=== PATIENT | female | born 1955 | race Caucasian/White ===

== ENCOUNTER 2019-09-03 01:10 | Inpatient (IN) | payer OTHER, MEDICAID ==
[~2019-09-03] VITALS: Ht 162.6 cm; Wt 73.3 kg
[~2019-09-03 01:10] MED LIST: ADV250 IH; OLAN20TA2 PO; OSCD250 PO; TIOT185 IH
[2019-09-03] MEDS ORDERED: ZOLPIDEM TARTRATE 10 MG TABLET PO PRN (03:15)
[2019-09-03 04:05] VITALS: BP 109/67
[2019-09-03] MEDS ORDERED: IBUPROFEN 600 MG TABLET PO PRN (07:15)
[2019-09-03] MEDS ORDERED: CloNIDine HCL 0.1 MG TABLET PO PRN (07:15)
[2019-09-03] MEDS ORDERED: BENZOCAINE/MENTHOL LOZENGE MM PRN (07:15)
[2019-09-03] MEDS ORDERED: ALBUTEROL SULFATE HFA 90 MCG/PUFF 8 GM INHALER IH PRN (07:15)
[2019-09-03] MEDS ORDERED: OMEPRAZOLE 20 MG CAPSULE PO PRN (07:15)
[2019-09-03] MEDS ORDERED: ACETAMINOPHEN 325 MG TABLET PO PRN (07:15)
[2019-09-03] MEDS ORDERED: MAG HYDROX/AL HYDROX/SIMETH ES 30 ML SUSPENSION UDCUP PO PRN (07:15)
[2019-09-03] MEDS ORDERED: MAGNESIUM HYDROXIDE SUSPENSION 30 ML UDCUP PO PRN (07:15)
[2019-09-03] MEDS ORDERED: LOPERAMIDE HCL 2 MG CAPSULE PO PRN (07:15)
[2019-09-03] MEDS ORDERED: BACITRACIN 28.4 GM OINTMENT TP PRN (07:15)
[2019-09-03] MEDS ORDERED: DOCUSATE SODIUM 100 MG CAPSULE PO PRN (07:15)
[2019-09-03] MEDS ORDERED: PETROLATUM,WHITE 28 GM JELLY TP PRN (07:15)
[2019-09-03] MEDS ORDERED: ONDANSETRON HCL 4 MG TABLET PO PRN (07:15)
[2019-09-03] MEDS: TIOTROPIUM BROMIDE 18 MCG/INH HANDIHALER [5] IH SCH (13:03)
[2019-09-03] MEDS: OLANZapine 7.5 MG TABLET PO SCH (21:00)
[2019-09-04 04:39] VITALS: BP 101/68
[2019-09-04 08:17] VITALS: BP 105/62
[2019-09-04] MEDS: TIOTROPIUM BROMIDE 18 MCG/INH HANDIHALER [5] IH SCH (08:50)
[2019-09-04 09:18] LABS: AMPHET/METH SCREEN,URINE NEGATIVE (NEGATIVE); BARBITURATE SCREEN, URINE NEGATIVE (NEGATIVE); BENZODIAZEPINES SCREEN,URINE NEGATIVE (NEGATIVE); CANNABINOID SCREEN,URINE NEGATIVE (NEGATIVE); COCAINE SCREEN,URINE NEGATIVE (NEGATIVE); METHADONE SCREEN, URINE NEGATIVE (NEGATIVE); OPIATE SCREEN,URINE NEGATIVE (NEGATIVE)
[2019-09-04 09:19] LABS: PHENCYCLIDINE SCREEN,URINE NEGATIVE (NEGATIVE)
[2019-09-04] MEDS ORDERED: HALOPERIDOL LACTATE 5 MG/ML VIAL IM ONE (14:45)
[2019-09-04] MEDS ORDERED: LORazepam 2 MG/ML VIAL IM ONE (14:45)
[2019-09-04] MEDS ORDERED: DiphenhydrAMINE HCL 50 MG/ML VIAL IM ONE (14:45)
[2019-09-04 16:55] VITALS: BP 100/62
[2019-09-04] MEDS: OLANZapine 7.5 MG TABLET PO SCH (20:21)
[2019-09-05 04:49] VITALS: BP 110/68
[2019-09-05] MEDS: TIOTROPIUM BROMIDE 18 MCG/INH HANDIHALER [5] IH SCH (08:27)
[2019-09-05 16:11] VITALS: BP 128/76
[2019-09-05] MEDS: OLANZapine 7.5 MG TABLET PO SCH (20:44)
[2019-09-06 05:24] VITALS: BP 110/65
[2019-09-06 08:27] VITALS: BP 121/74
[2019-09-06] MEDS: TIOTROPIUM BROMIDE 18 MCG/INH HANDIHALER [5] IH SCH (08:29)
[2019-09-06 16:16] VITALS: BP 114/63
[2019-09-06] MEDS: OLANZapine 7.5 MG TABLET PO SCH (20:17)
[2019-09-07 05:25] VITALS: BP 117/65
[2019-09-07 07:51] LABS: EOSINOPHILS % (AUTO) 1.7 % (1.0-6.0); HEMATOCRIT 36.1 % (36-46); HEMOGLOBIN 12.1 g/dL (12.0-16.0); LYMPHOCYTES # (AUTO) 1.5 K/uL (1.0-4.8); LYMPHOCYTES % (AUTO) 29.8 % (22.0-44.0); MEAN CORPUSCULAR HEMOGLOBIN 30.4 pg (26.0-34.0); MEAN CORPUSCULAR HGB CONC 33.6 G/dL (31.0-37.0); MEAN CORPUSCULAR VOLUME 91 fL (80-100); MONOCYTES # (AUTO) 0.5 K/uL (0.1-1.0); MONOCYTES % (AUTO) 9.4 % (2.0-9.0); NEUTROPHILS # (AUTO) 2.9 K/uL (1.8-7.7); NEUTROPHILS % (AUTO) 58.1 % (40.0-70.0); PLATELET COUNT (AUTO) 222 K/uL (150-450); RED BLOOD CELL COUNT(AUTO) 3.98 MIL/uL (4.00-5.20)
[2019-09-07] MEDS: TIOTROPIUM BROMIDE 18 MCG/INH HANDIHALER [5] IH SCH (08:12)
[2019-09-07 08:18] VITALS: BP 102/66
[2019-09-07 08:19] LABS: ALANINE AMINOTRANSFERASE 17 U/L (12-78); ALBUMIN 3.2 g/dL (3.4-5.0); ALKALINE PHOSPHATASE 58 U/L (46-116); ANION GAP 8 mmol/L (8-16); ASPARTATE AMINOTRANSFERASE 17 U/L (15-37); BILIRUBIN,TOTAL 0.7 mg/dL (0.1-1.0); CARBON DIOXIDE 28 mmol/L (22-29); CHLORIDE 106 mmol/L (98-107); CHOL/HDL RATIO 3.3 (3.9-5.7); CHOLESTEROL 162 mg/dL (131-200); GLOMERULAR FILTR. RATE CALC > 60 mL/min (>60); GLUCOSE,RANDOM 94 mg/dL (70-110); HDL CHOLESTEROL 49 mg/dL (40-60); LDL CHOL (CALC.) 100 mg/dL (0-130); POTASSIUM 4.2 mmol/L (3.5-5.1); SODIUM SERUM 142 mmol/L (136-145); TOTAL PROTEIN, SERUM 6.2 g/dL (6.4-8.2); TRIGLYCERIDES 67 mg/dL (15-150); UREA NITROGEN, BLOOD 16 mg/dL (7-18)
[2019-09-07 16:09] VITALS: BP 109/67
[2019-09-07] MEDS: LORazepam 2 MG TABLET PO PRN (17:10)
[2019-09-07] MEDS: OLANZapine 7.5 MG TABLET PO SCH (20:42)
[2019-09-08 02:54] VITALS: BP 114/68
[2019-09-08] MEDS: TIOTROPIUM BROMIDE 18 MCG/INH HANDIHALER [5] IH SCH (08:52)
[2019-09-08 16:04] VITALS: BP 122/67
[2019-09-08] MEDS: OLANZapine 7.5 MG TABLET PO SCH (20:43)
[2019-09-09 04:59] VITALS: BP 118/66
[2019-09-09 08:16] VITALS: BP 121/55
[2019-09-09] MEDS: TIOTROPIUM BROMIDE 18 MCG/INH HANDIHALER [5] IH SCH (08:27)
[2019-09-09 16:10] VITALS: BP 113/76
[2019-09-09] MEDS: OLANZapine 7.5 MG TABLET PO SCH (20:16)
[2019-09-10 00:05] VITALS: BP 110/68
[2019-09-10] MEDS: TIOTROPIUM BROMIDE 18 MCG/INH HANDIHALER [5] IH SCH (08:51)
[2019-09-10] MEDS: LORazepam 2 MG TABLET PO PRN (08:51)
[2019-09-10 16:29] VITALS: BP 103/62
[2019-09-10] MEDS: OLANZapine 7.5 MG TABLET PO SCH (20:16)
[2019-09-11 00:29] VITALS: BP 115/64
[2019-09-11 08:15] VITALS: BP 120/64
[2019-09-11] MEDS: LORazepam 2 MG TABLET PO PRN ×2 (08:33→16:13)
[2019-09-11] MEDS: TIOTROPIUM BROMIDE 18 MCG/INH HANDIHALER [5] IH SCH (08:37)
[2019-09-11 16:06] VITALS: BP 119/74
[2019-09-11] MEDS: HALOPERIDOL 5 MG TABLET PO PRN (16:13)
[2019-09-11] MEDS: OLANZapine 7.5 MG TABLET PO SCH (20:15)
[2019-09-12 05:48] VITALS: BP 111/78
[2019-09-12] MEDS: LORazepam 2 MG TABLET PO PRN (08:02)
[2019-09-12 08:08] VITALS: BP 121/84
[2019-09-12] MEDS: TIOTROPIUM BROMIDE 18 MCG/INH HANDIHALER [5] IH SCH (08:13)
[2019-09-12] MEDS: HALOPERIDOL 5 MG TABLET PO PRN (16:11)
[2019-09-12 16:23] VITALS: BP 114/66
[2019-09-12] MEDS: OLANZapine 7.5 MG TABLET PO SCH (20:02)
[2019-09-13 06:21] VITALS: BP 116/71
[2019-09-13 08:16] VITALS: BP 112/67
[2019-09-13] MEDS: TIOTROPIUM BROMIDE 18 MCG/INH HANDIHALER [5] IH SCH (08:32)
[2019-09-13 16:11] VITALS: BP 113/70
[2019-09-13] MEDS: OLANZapine 7.5 MG TABLET PO SCH ×2 (20:18→20:27)
[2019-09-14 05:35] VITALS: BP 117/74
[2019-09-14 08:27] VITALS: BP 100/57
[2019-09-14] MEDS: TIOTROPIUM BROMIDE 18 MCG/INH HANDIHALER [5] IH SCH (08:49)
[2019-09-14 16:26] VITALS: BP 110/63
[2019-09-14] MEDS: OLANZapine 7.5 MG TABLET PO SCH (20:48)
[2019-09-15 02:14] VITALS: BP 120/65
[2019-09-15 08:06] VITALS: BP 101/59
[2019-09-15] MEDS: TIOTROPIUM BROMIDE 18 MCG/INH HANDIHALER [5] IH SCH (09:00)
[2019-09-15 16:12] VITALS: BP 127/84
[2019-09-15] MEDS: OLANZapine 7.5 MG TABLET PO SCH (20:31)
[2019-09-16 01:16] VITALS: BP 123/79
[2019-09-16 08:08] VITALS: BP 109/66
[2019-09-16] MEDS: TIOTROPIUM BROMIDE 18 MCG/INH HANDIHALER [5] IH SCH ×2 (08:29→09:00)
[2019-09-16 16:07] VITALS: BP 116/73
[2019-09-16] MEDS: OLANZapine 7.5 MG TABLET PO SCH (20:10)
[2019-09-17 04:02] VITALS: BP 110/66
[2019-09-17 08:20] VITALS: BP 111/63
[2019-09-17] MEDS: TIOTROPIUM BROMIDE 18 MCG/INH HANDIHALER [5] IH SCH (08:30)
[2019-09-17 16:42] VITALS: BP 123/68
[2019-09-17] MEDS: OLANZapine 7.5 MG TABLET PO SCH (20:07)
[2019-09-18 04:39] VITALS: BP 117/65
[2019-09-18] MEDS: TIOTROPIUM BROMIDE 18 MCG/INH HANDIHALER [5] IH SCH (08:07)
[2019-09-18 08:26] VITALS: BP 126/69
[2019-09-18] MEDS: HALOPERIDOL 5 MG TABLET PO PRN (16:16)
[2019-09-18 16:18] VITALS: BP 115/60
[2019-09-18] MEDS: OLANZapine 7.5 MG TABLET PO SCH (20:14)
[2019-09-19 04:20] VITALS: BP 110/68
[2019-09-19] MEDS: TIOTROPIUM BROMIDE 18 MCG/INH HANDIHALER [5] IH SCH (08:25)
[2019-09-19 09:32] VITALS: BP 101/56
[2019-09-19] MEDS: OLANZapine 7.5 MG TABLET PO SCH (20:17)
[2019-09-19 20:54] VITALS: BP 111/60
[2019-09-20] MEDS: LORazepam 2 MG TABLET PO PRN (08:57)
[2019-09-20] MEDS: TIOTROPIUM BROMIDE 18 MCG/INH HANDIHALER [5] IH SCH (08:57)
[2019-09-20 10:20] VITALS: BP 114/62
[2019-09-20 16:21] VITALS: BP 104/65
[2019-09-20] MEDS: OLANZapine 7.5 MG TABLET PO SCH (21:00)
[2019-09-21 05:16] VITALS: BP 107/61
[2019-09-21 08:23] VITALS: BP 100/55
[2019-09-21] MEDS: TIOTROPIUM BROMIDE 18 MCG/INH HANDIHALER [5] IH SCH (09:00)
[2019-09-21 16:35] VITALS: BP 117/63
[2019-09-21] MEDS: OLANZapine 7.5 MG TABLET PO SCH (21:08)
[2019-09-22 01:59] VITALS: BP 110/68
[2019-09-22 08:13] VITALS: BP 100/60
[2019-09-22] MEDS: TIOTROPIUM BROMIDE 18 MCG/INH HANDIHALER [5] IH SCH (09:00)
[2019-09-22] MEDS ORDERED: TUBERCULIN, PURIFIED PROTEIN DERIVATIVE 5 TU/0.1 ML SYRINGE ID ONE (15:45)
[2019-09-22 17:06] VITALS: BP 117/62
[2019-09-22] MEDS: OLANZapine 7.5 MG TABLET PO SCH (20:58)
[2019-09-23 03:54] VITALS: BP 114/74
[2019-09-23] MEDS: TIOTROPIUM BROMIDE 18 MCG/INH HANDIHALER [5] IH SCH (08:03)
[2019-09-23 08:14] VITALS: BP 110/74
[2019-09-23 16:05] VITALS: BP 100/62
[2019-09-23] MEDS: OLANZapine 7.5 MG TABLET PO SCH (20:18)
[2019-09-24 04:36] VITALS: BP 96/71
[2019-09-24] MEDS: TIOTROPIUM BROMIDE 18 MCG/INH HANDIHALER [5] IH SCH (08:15)
[2019-09-24 08:21] VITALS: BP 101/59
[2019-09-24 17:20] VITALS: BP 113/67
[2019-09-24] MEDS: OLANZapine 7.5 MG TABLET PO SCH (20:17)
[2019-09-25 08:22] VITALS: BP 100/59
[2019-09-25] MEDS: TIOTROPIUM BROMIDE 18 MCG/INH HANDIHALER [5] IH SCH (09:00)
[2019-09-25 16:16] VITALS: BP 122/72
[2019-09-25] MEDS: OLANZapine 7.5 MG TABLET PO SCH (21:03)
[2019-09-26 08:16] VITALS: BP 102/62
[2019-09-26] MEDS: TIOTROPIUM BROMIDE 18 MCG/INH HANDIHALER [5] IH SCH (08:35)
[2019-09-26 16:48] VITALS: BP 102/69
[2019-09-26] MEDS: OLANZapine 7.5 MG TABLET PO SCH (21:11)
[2019-09-27 06:41] VITALS: BP 108/65
[2019-09-27] MEDS: TIOTROPIUM BROMIDE 18 MCG/INH HANDIHALER [5] IH SCH (08:05)
[2019-09-27 08:25] VITALS: BP 116/71
[2019-09-27 16:14] VITALS: BP 114/64
[2019-09-27] MEDS: OLANZapine 7.5 MG TABLET PO SCH (20:28)
[2019-09-28 01:53] VITALS: BP 117/72
[2019-09-28 08:16] VITALS: BP 108/66
[2019-09-28] MEDS: TIOTROPIUM BROMIDE 18 MCG/INH HANDIHALER [5] IH SCH (08:25)
[2019-09-28 16:25] VITALS: BP 108/70
[2019-09-28] MEDS: OLANZapine 7.5 MG TABLET PO SCH (21:06)
[2019-09-29 01:55] VITALS: BP 110/74
[2019-09-29 08:04] VITALS: BP 110/64
[2019-09-29] MEDS: TIOTROPIUM BROMIDE 18 MCG/INH HANDIHALER [5] IH SCH (08:56)
[2019-09-29 16:22] VITALS: BP 132/70
[2019-09-29] MEDS: OLANZapine 7.5 MG TABLET PO SCH (20:20)
[2019-09-30 01:29] VITALS: BP 126/74
[2019-09-30] MEDS: TIOTROPIUM BROMIDE 18 MCG/INH HANDIHALER [5] IH SCH (08:12)
[2019-09-30 08:17] VITALS: BP 103/60
[2019-09-30] MEDS: OLANZapine 7.5 MG TABLET PO SCH (20:23)
[2019-09-30 20:43] VITALS: BP 109/61
[2019-10-01 03:30] VITALS: BP 116/68
[2019-10-01] MEDS: TIOTROPIUM BROMIDE 18 MCG/INH HANDIHALER [5] IH SCH (08:38)
[2019-10-01 08:40] VITALS: BP 107/62
[2019-10-01 17:03] VITALS: BP 124/84
[2019-10-01] MEDS: OLANZapine 7.5 MG TABLET PO SCH (20:13)
[2019-10-02 06:15] VITALS: BP 136/75
[2019-10-02] MEDS: TIOTROPIUM BROMIDE 18 MCG/INH HANDIHALER [5] IH SCH (08:40)
[2019-10-02 08:46] VITALS: BP 102/69
[2019-10-02 16:00] VITALS: BP 115/67
[2019-10-02] MEDS: OLANZapine 7.5 MG TABLET PO SCH (20:06)
[2019-10-03 04:31] VITALS: BP 101/68
[2019-10-03] MEDS: TIOTROPIUM BROMIDE 18 MCG/INH HANDIHALER [5] IH SCH (08:32)
[2019-10-03 08:54] VITALS: BP 127/78
[2019-10-03] MEDS ORDERED: DiphenhydrAMINE HCL 50 MG/ML VIAL IM ONE (12:45)
[2019-10-03] MEDS ORDERED: HALOPERIDOL LACTATE 5 MG/ML VIAL IM ONE (12:45)
[2019-10-03] MEDS ORDERED: LORazepam 2 MG/ML VIAL IM ONE (12:45)
[2019-10-03 16:40] VITALS: BP 100/64
[2019-10-03] MEDS: OLANZapine 7.5 MG TABLET PO SCH (20:53)
[2019-10-04 01:34] VITALS: BP 105/62
[2019-10-04] MEDS ORDERED: PNEUMOCOCCAL VACCINE POLYVALENT 0.5 ML VIAL [PPSV23] IM ONE (03:00)
[2019-10-04] MEDS: TIOTROPIUM BROMIDE 18 MCG/INH HANDIHALER [5] IH SCH (08:24)
[2019-10-04 08:32] VITALS: BP 100/67
[2019-10-04 16:11] VITALS: BP 105/63
[2019-10-04] MEDS: OLANZapine 7.5 MG TABLET PO SCH (20:07)
[2019-10-05 04:21] VITALS: BP 110/64
[2019-10-05 09:39] VITALS: BP 100/66
[2019-10-05 16:09] VITALS: BP 107/67
[2019-10-05] MEDS: OLANZapine 7.5 MG TABLET PO SCH (20:39)
[2019-10-06 09:04] VITALS: BP 108/60
[2019-10-06 16:23] VITALS: BP 125/76
[2019-10-06] MEDS: OLANZapine 7.5 MG TABLET PO SCH (20:06)
[2019-10-07 00:11] VITALS: BP 105/64
[2019-10-07 08:27] VITALS: BP 105/66
[2019-10-07] MEDS: HALOPERIDOL 5 MG TABLET PO PRN (10:12)
[2019-10-07] MEDS: LORazepam 2 MG TABLET PO PRN (10:12)
[2019-10-07 16:00] VITALS: BP 106/74
[2019-10-07] MEDS: OLANZapine 7.5 MG TABLET PO SCH (20:17)
[2019-10-08 09:43] VITALS: BP 97/62
[2019-10-08 16:07] VITALS: BP 107/78
[2019-10-08] MEDS: OLANZapine 7.5 MG TABLET PO SCH (20:17)
[2019-10-09 00:30] VITALS: BP 126/73
[2019-10-09 08:08] VITALS: BP 102/64
[2019-10-09 16:24] VITALS: BP 108/66
[2019-10-09] MEDS: OLANZapine 7.5 MG TABLET PO SCH (20:17)
[2019-10-10 06:48] VITALS: BP 114/68
[2019-10-10 08:18] VITALS: BP 128/70
[2019-10-10 17:28] VITALS: BP 100/63
[2019-10-10] MEDS: OLANZapine 7.5 MG TABLET PO SCH (20:51)
[2019-10-11 02:00] VITALS: BP 118/67
[2019-10-11 09:18] VITALS: BP 95/55
[2019-10-11 17:36] VITALS: BP 118/64
[2019-10-11] MEDS: OLANZapine 7.5 MG TABLET PO SCH (20:13)
[2019-10-12 00:03] VITALS: BP 120/70
[2019-10-12 08:47] VITALS: BP 111/73
[2019-10-12 16:06] VITALS: BP 124/78
[2019-10-12] MEDS: OLANZapine 7.5 MG TABLET PO SCH (21:45)
[2019-10-13 06:49] VITALS: BP 118/81
[2019-10-13 08:10] VITALS: BP 113/63
[2019-10-13 16:00] VITALS: BP 123/70
[2019-10-13] MEDS: OLANZapine 7.5 MG TABLET PO SCH (20:00)
[2019-10-14 01:58] VITALS: BP 122/75
[2019-10-14 08:14] VITALS: BP 93/63
[2019-10-14] MEDS: OLANZapine 7.5 MG TABLET PO SCH (20:04)
[2019-10-15 02:22] VITALS: BP 115/70
[2019-10-15 08:06] VITALS: BP 106/67
[2019-10-15 16:06] VITALS: BP 131/74
[2019-10-15] MEDS: OLANZapine 7.5 MG TABLET PO SCH (20:52)
[2019-10-16 00:40] VITALS: BP 119/76
[2019-10-16 08:31] VITALS: BP 105/61
[2019-10-16 16:59] VITALS: BP 113/60
[2019-10-16] MEDS: OLANZapine 7.5 MG TABLET PO SCH (20:17)
[2019-10-17 06:51] VITALS: BP 125/78
[2019-10-17 08:27] VITALS: BP 101/64
[2019-10-17 16:09] VITALS: BP 115/61
[2019-10-17] MEDS: OLANZapine 7.5 MG TABLET PO SCH (20:10)
[2019-10-18 00:15] VITALS: BP 94/58
[2019-10-18 10:18] VITALS: BP 74/116
[2019-10-18 16:08] VITALS: BP 114/68
[2019-10-18] MEDS: OLANZapine 7.5 MG TABLET PO SCH (20:18)
[2019-10-19 04:49] VITALS: BP 122/65
[2019-10-19 08:51] VITALS: BP 103/62
[2019-10-19 16:49] VITALS: BP 110/72
[2019-10-19] MEDS: OLANZapine 7.5 MG TABLET PO SCH (20:05)
[2019-10-20 08:36] VITALS: BP 110/65
[2019-10-20 16:11] VITALS: BP 100/68
[2019-10-20] MEDS: OLANZapine 7.5 MG TABLET PO SCH (20:33)
[2019-10-21 04:18] VITALS: BP 105/71
[2019-10-21 09:11] VITALS: BP 94/54
[2019-10-21 16:19] VITALS: BP 101/68
[2019-10-21] MEDS: OLANZapine 7.5 MG TABLET PO SCH (20:41)
[2019-10-22 00:25] VITALS: BP 100/66
[2019-10-22 08:29] VITALS: BP 100/62
[2019-10-22 16:09] VITALS: BP 125/79
[2019-10-22] MEDS: OLANZapine 7.5 MG TABLET PO SCH (20:05)
[2019-10-23 06:21] VITALS: BP 111/72
[2019-10-23 08:32] VITALS: BP 119/67
[2019-10-23 16:39] VITALS: BP 102/67
[2019-10-23] MEDS: OLANZapine 7.5 MG TABLET PO SCH (20:11)
[2019-10-23] MEDS ORDERED: TUBERCULIN, PURIFIED PROTEIN DERIVATIVE 5 TU/0.1 ML SYRINGE ID ONE (21:15)
[2019-10-24 05:57] VITALS: BP 106/60
[2019-10-24 12:18] VITALS: BP 96/61
[2019-10-24] MEDS: OLANZapine 7.5 MG TABLET PO SCH (20:07)
[2019-10-24 20:55] VITALS: BP 100/64
[2019-10-25 08:11] VITALS: BP 106/59
[2019-10-25 16:29] VITALS: BP 100/56
[2019-10-25] MEDS: OLANZapine 7.5 MG TABLET PO SCH (20:17)
[2019-10-26 06:19] VITALS: BP 108/65
[2019-10-26 08:32] VITALS: BP 100/65
[2019-10-26 16:13] VITALS: BP 106/64
[2019-10-26] MEDS: OLANZapine 7.5 MG TABLET PO SCH (20:54)
[2019-10-27 06:25] VITALS: BP 126/67
[2019-10-27] MEDS ORDERED: OLAN7.5T2 PO (09:11)
== END 2019-10-27 14:20 | DRG 885 ==
LOC: B3A 02:53 → B2S 10-01 21:13
PROVIDERS: ADMIT Psychiatry & Neurology Psychiatry; ATTEND Psychiatry & Neurology Psychiatry
DX: F20.0 Paranoid schizophrenia (principal); G40.909 Epilepsy, unspecified, not intractable, without status epilepticus; J44.9 Chronic obstructive pulmonary disease, unspecified; E55.9 Vitamin D deficiency, unspecified; F29 Unspecified psychosis not due to a substance or known physiological condition; F41.9 Anxiety disorder, unspecified; G47.00 Insomnia, unspecified; K21.9 Gastro-esophageal reflux disease without esophagitis; R45.87 Impulsiveness; K59.00 Constipation, unspecified; E78.5 Hyperlipidemia, unspecified; Z59.0 Homelessness; Z88.2 Allergy status to sulfonamides; Z79.899 Other long term (current) drug therapy; Z03.818 Encounter for observation for suspected exposure to other biological agents ruled out
CPT/HCPCS: 80307; 84436; J1200; J1630; J2060